=== PATIENT | female | born 1980 | race African-American/Black ===

== ENCOUNTER 2017-07-17 00:18 | Inpatient (IN) | payer OTHER ==
[2017-07-17] MEDS: morphine 4 MG/ML VIAL IV (01:09)
[2017-07-17] MEDS: ONDANSETRON 4 MG INJ IV (01:09)
[2017-07-17] MEDS: SODIUM CHLORIDE 0.9% 1L BAG IV* (01:10)
[2017-07-17 01:13] LABS: URINE BLOOD (Dip) POC 3+ (NEGATIVE); URINE GLUCOSE (Dip) POC Negative (NEGATIVE); URINE KETONES (Dip) POC 1+ (NEGATIVE); URINE LEUKOCYTE EST (Dip) POC Negative (NEGATIVE); URINE NITRITE (Dip) POC Negative (NEGATIVE); URINE TOTAL PROTEIN POC 3+ (NEGATIVE)
[2017-07-17 01:13] LABS: URINE PH (Dip) POC 5.5 (5.0-8.5)
[2017-07-17 01:19] LABS: ADD MAN DIFF? NO
[2017-07-17 01:20] LABS: WHITE BLOOD COUNT 7.3 10^3/ul (4.8-10.8)
[2017-07-17 01:20] LABS: BASOPHILS % 0.3 % (0.0-2.0); EOSINOPHILS # 0.2 10^3/ul (0.0-0.5); EOSINOPHILS % 2.6 % (0.0-7.0); HEMATOCRIT 45.9 % (37.0-47.0); HEMOGLOBIN 15.6 g/dl (12.0-16.0); LYMPHOCYTES # 1.9 10^3/ul (0.8-2.9); LYMPHOCYTES % 26.4 % (15.0-51.0); MEAN CORPUSCULAR HEMOGLOBIN 29.5 pg (29.0-33.0); MEAN CORPUSCULAR VOLUME 86.9 fl (82.0-101.0); MEAN PLATELET VOLUME 11.7 fl (7.4-10.4); MONOCYTE # 0.3 10^3/ul (0.3-0.9); MONOCYTES % 3.4 % (0.0-11.0); NEUTROPHIL # 4.9 10^3/ul (1.6-7.5); PLATELET COUNT 207 10^3/UL (140-415); RED BLOOD COUNT 5.28 10^6/ul (4.20-5.40); RED CELL DISTRIBUTION WIDTH 12.8 % (11.5-14.5)
[2017-07-17 01:36] LABS: INR 1.02; PROTIME 13.5 Sec (11.9-14.9); PT RATIO 1.1
[2017-07-17 01:37] LABS: PARTIAL THROMBOPLASTIN TIME 25.1 Sec (25.0-35.0)
[2017-07-17 01:42] LABS: ADD UMIC YES; UR ASCORBIC ACID 40 mg/dL (NEGATIVE); UR BACTERIA FEW /HPF (NONE SEEN); UR BILIRUBIN (Dip) NEGATIVE (NEGATIVE); UR BLOOD (Dip) 3+ mg/dL (NEGATIVE); UR CLARITY CLOUDY (CLEAR); UR COLOR RED (YELLOW); UR GLUCOSE (Dip) 1+ mg/dL (NEGATIVE); UR KETONES (Dip) TRACE mg/dL (NEGATIVE); UR LEUKOCYTE ESTERASE (Dip) TRACE Leu/ul (NEGATIVE); UR MUCUS MANY /HPF (NONE SEEN); UR NITRITE (Dip) NEGATIVE (NEGATIVE); UR RBC > 182 /HPF (0-5); UR SPECIFIC GRAVITY (Dip) 1.029 (1.003-1.030); UR SQUAMOUS EPITHELIAL CELL FEW /HPF (FEW); UR TOTAL PROTEIN (Dip) 3+ mg/dl (NEGATIVE); UR UROBILINOGEN (Dip) 1+ mg/dL (NEGATIVE); UR WBC 16 /HPF (0-5)
[2017-07-17 01:43] LABS: ETHANOL < 10.0 mg/dl
[2017-07-17 01:45] LABS: AMPHETAMINE/METHAMPHETAMINE Positive (NEGATIVE); CANNABINOIDS Positive (NEGATIVE); COCAINE Positive (NEGATIVE)
[2017-07-17 01:45] LABS: LACTIC ACID 4.4 mmol/L (0.5-2.0)
[2017-07-17 01:46] LABS: BARBITURATES Negative (NEGATIVE); BENZODIAZEPINES Negative (NEGATIVE); OPIATES Negative (NEGATIVE)
[2017-07-17 02:20] LABS: ALANINE AMINOTRANSFERASE 29 IU/L (13-69); ALBUMIN 4.9 g/dl (3.3-4.9); ALBUMIN/GLOBULIN RATIO 1.19; ALKALINE PHOSPHATASE 99 IU/L (42-121); ANION GAP 22 (8-16); ASPARTATE AMINO TRANSFERASE 31 IU/L (15-46); BILIRUBIN,INDIRECT 0.6 mg/dl (0-1.1); BILIRUBIN,TOTAL 0.6 mg/dl (0.2-1.3); BLOOD UREA NITROGEN 12 mg/dl (7-20); CALCIUM 10.7 mg/dl (8.4-10.2); CARBON DIOXIDE 24 mmol/L (21-31); CHLORIDE 103 mmol/L (97-110); CREATININE 0.95 mg/dl (0.44-1.00); GLUCOSE 171 mg/dl (70-220); LIPASE 111 U/L (23-300); POTASSIUM 3.6 mmol/L (3.5-5.1); SODIUM 145 mmol/L (135-144)
[2017-07-17] MEDS: PIPER-TAZO 3.375 GM IV (PMX) 100 ML IVPB (03:05)
[2017-07-17] MEDS: VANCOMYCIN 1 GM (PMX) 250 ML IVPB (03:27)
[2017-07-17] MEDS ORDERED: ONDANSETRON 4 MG INJ IV (03:30)
[2017-07-17] MEDS ORDERED: METOCLOPRAMIDE 10 MG INJ IV (03:30)
[2017-07-17] MEDS ORDERED: NACL 0.9% 3 ML SYG IV (03:30)
[2017-07-17] MEDS ORDERED: DOCUSATE SODIUM 100 MG CAP PO (03:30)
[2017-07-17] MEDS ORDERED: BISACODYL (EC) 5 MG TAB PO (03:30)
[2017-07-17] MEDS ORDERED: LORAZEPAM 2 MG INJ IV (03:30)
[2017-07-17] MEDS: KETOROLAC 30 MG INJ IV (04:40)
[2017-07-17] MEDS: METOCLOPRAMIDE 10 MG INJ IV ×3 (04:40→18:00)
[2017-07-17] MEDS: morphine 2 MG INJ IV (04:41)
[2017-07-17 05:00] LABS: LACTIC ACID 1.6 mmol/L (0.5-2.0)
[2017-07-17 05:59] LABS: ADD MAN DIFF? NO
[2017-07-17 06:07] LABS: BASOPHILS % 0.1 % (0.0-2.0); EOSINOPHILS # 0.1 10^3/ul (0.0-0.5); EOSINOPHILS % 1.1 % (0.0-7.0); HEMATOCRIT 37.8 % (37.0-47.0); HEMOGLOBIN 12.7 g/dl (12.0-16.0); LYMPHOCYTES # 0.6 10^3/ul (0.8-2.9); LYMPHOCYTES % 7.2 % (15.0-51.0); MEAN CORPUSCULAR HEMOGLOBIN 29.7 pg (29.0-33.0); MEAN CORPUSCULAR HGB CONC 33.6 g/dl (32.0-37.0); MEAN CORPUSCULAR VOLUME 88.5 fl (82.0-101.0); MEAN PLATELET VOLUME 11.7 fl (7.4-10.4); MONOCYTE # 0.3 10^3/ul (0.3-0.9); MONOCYTES % 2.9 % (0.0-11.0); NEUTROPHIL # 7.6 10^3/ul (1.6-7.5); NEUTROPHILS % 88.5 % (39.0-77.0); PLATELET COUNT 165 10^3/UL (140-415); RED BLOOD COUNT 4.27 10^6/ul (4.20-5.40); RED CELL DISTRIBUTION WIDTH 12.8 % (11.5-14.5)
[2017-07-17 06:07] LABS: WHITE BLOOD COUNT 8.6 10^3/ul (4.8-10.8)
[2017-07-17 06:32] LABS: ALANINE AMINOTRANSFERASE 22 IU/L (13-69); ALBUMIN 3.2 g/dl (3.3-4.9); ALBUMIN/GLOBULIN RATIO 1.03; ALKALINE PHOSPHATASE 59 IU/L (42-121); ANION GAP 10 (8-16); ASPARTATE AMINO TRANSFERASE 24 IU/L (15-46); BLOOD UREA NITROGEN 10 mg/dl (7-20); CALCIUM 8.1 mg/dl (8.4-10.2); CARBON DIOXIDE 23 mmol/L (21-31); CHLORIDE 115 mmol/L (97-110); CHOL/HDL RATIO 2.1 RATIO; CHOLESTEROL 98 mg/dl (100-200); CREATININE 0.72 mg/dl (0.44-1.00); GLUCOSE 128 mg/dl (70-220); HDL CHOLESTEROL 45 mg/dl (34-82); LDL CHOLESTEROL,CALCULATED 46 mg/dl; POTASSIUM 3.8 mmol/L (3.5-5.1); SODIUM 144 mmol/L (135-144); TOTAL PROTEIN 6.3 g/dl (6.1-8.1); TRIGLYCERIDES 34 mg/dl (0-149)
[2017-07-17 06:46] LABS: LACTIC ACID 1.4 mmol/L (0.5-2.0)
[2017-07-17] MEDS: SOD CHLORIDE 0.9% 1,000 ML IV ×3 (07:17→23:07)
[2017-07-17 07:45] LABS: HEMOGLOBIN A1C 5.4 % (0-5.9)
[2017-07-17 08:03] LABS: THYROID STIMULATING HORMONE 0.851 MIU/L (0.465-4.680)
[2017-07-17 08:38] LABS: LACTIC ACID 1.4 mmol/L (0.5-2.0)
[2017-07-17 14:51] LABS: LACTIC ACID 1.2 mmol/L (0.5-2.0)
[2017-07-17] MEDS: HYDROCODONE/APAP (5/325) TAB PO (15:46)
[2017-07-17] MEDS: metroNIDAZOLE 500 MG/NS (PMX) 100 ML IVPB ×2 (16:15→22:55)
[2017-07-17] MEDS: NICOTINE (14 MG/24 HR) PATCH TRANSDERM (16:15)
[2017-07-17] MEDS: ACETAMINOPHEN 325 MG TAB PO (19:17)
[2017-07-17] MEDS: CIPROFLOXACIN 400MG/D5W 200 ML IVPB (21:40)
[2017-07-17] MEDS: FAMOTIDINE 20 MG TAB PO (21:40)
[2017-07-18] MEDS: SOD CHLORIDE 0.9% 1,000 ML IV ×2 (00:14→18:59)
[2017-07-18] MEDS: METOCLOPRAMIDE 10 MG INJ IV ×5 (00:14→23:26)
[2017-07-18] MEDS: HYDROCODONE/APAP (5/325) TAB PO (03:21)
[2017-07-18] MEDS: metroNIDAZOLE 500 MG/NS (PMX) 100 ML IVPB ×3 (05:56→22:36)
[2017-07-18 06:15] LABS: ADD MAN DIFF? NO
[2017-07-18 06:25] LABS: BASOPHILS % 0.2 % (0.0-2.0); EOSINOPHILS # 0.1 10^3/ul (0.0-0.5); EOSINOPHILS % 1.9 % (0.0-7.0); HEMOGLOBIN 11.5 g/dl (12.0-16.0); LYMPHOCYTES # 1.2 10^3/ul (0.8-2.9); LYMPHOCYTES % 25.2 % (15.0-51.0); MEAN CORPUSCULAR HEMOGLOBIN 30.3 pg (29.0-33.0); MEAN CORPUSCULAR HGB CONC 33.8 g/dl (32.0-37.0); MEAN CORPUSCULAR VOLUME 89.7 fl (82.0-101.0); MEAN PLATELET VOLUME 11.7 fl (7.4-10.4); MONOCYTE # 0.3 10^3/ul (0.3-0.9); MONOCYTES % 6.8 % (0.0-11.0); NEUTROPHIL # 3.1 10^3/ul (1.6-7.5); NEUTROPHILS % 65.7 % (39.0-77.0); PLATELET COUNT 144 10^3/UL (140-415); RED BLOOD COUNT 3.79 10^6/ul (4.20-5.40); RED CELL DISTRIBUTION WIDTH 12.7 % (11.5-14.5)
[2017-07-18 06:25] LABS: WHITE BLOOD COUNT 4.7 10^3/ul (4.8-10.8)
[2017-07-18 06:44] LABS: ALANINE AMINOTRANSFERASE 27 IU/L (13-69); ALBUMIN 2.9 g/dl (3.3-4.9); ALBUMIN/GLOBULIN RATIO 1.03; ALKALINE PHOSPHATASE 51 IU/L (42-121); ANION GAP 11 (8-16); ASPARTATE AMINO TRANSFERASE 21 IU/L (15-46); BILIRUBIN,INDIRECT 0.8 mg/dl (0-1.1); BILIRUBIN,TOTAL 0.8 mg/dl (0.2-1.3); BLOOD UREA NITROGEN 4 mg/dl (7-20); CARBON DIOXIDE 23 mmol/L (21-31); CHLORIDE 107 mmol/L (97-110); CREATININE 0.76 mg/dl (0.44-1.00); GLUCOSE 95 mg/dl (70-220); MAGNESIUM 1.4 mg/dl (1.7-2.5); SODIUM 138 mmol/L (135-144); TOTAL PROTEIN 5.7 g/dl (6.1-8.1)
[2017-07-18 06:50] LABS: POTASSIUM 2.7 mmol/L (3.5-5.1)
[2017-07-18] MEDS: POTASSIUM CHLORIDE (SR) 20 MEQ TAB PO ×3 (07:47→15:46)
[2017-07-18] MEDS: MAGNESIUM SULFATE 2 GM/50 ML 50 ML IVPB (07:52)
[2017-07-18] MEDS: NICOTINE (14 MG/24 HR) PATCH TRANSDERM (08:01)
[2017-07-18] MEDS: FAMOTIDINE 20 MG TAB PO ×2 (08:01→20:42)
[2017-07-18] MEDS: CIPROFLOXACIN 400MG/D5W 200 ML IVPB ×2 (09:22→20:42)
[2017-07-18] MEDS: ACETAMINOPHEN 325 MG TAB PO (15:51)
[2017-07-19] MEDS: METOCLOPRAMIDE 10 MG INJ IV (05:39)
[2017-07-19] MEDS: metroNIDAZOLE 500 MG/NS (PMX) 100 ML IVPB (05:39)
[2017-07-19] MEDS: SOD CHLORIDE 0.9% 1,000 ML IV (05:39)
[2017-07-19 06:39] LABS: ANION GAP 9 (8-16); CARBON DIOXIDE 27 mmol/L (21-31); CHLORIDE 112 mmol/L (97-110); GLUCOSE 94 mg/dl (70-220); POTASSIUM 3.8 mmol/L (3.5-5.1); SODIUM 144 mmol/L (135-144)
[2017-07-19 06:50] LABS: BLOOD UREA NITROGEN < 2 mg/dl (7-20)
[2017-07-19] MEDS: CIPROFLOXACIN 400MG/D5W 200 ML IVPB (08:52)
[2017-07-19] MEDS: FAMOTIDINE 20 MG TAB PO (08:52)
[2017-07-19] MEDS: NICOTINE (14 MG/24 HR) PATCH TRANSDERM (08:54)
== END 2017-07-19 13:20 | disposition home or self-care (01) | DRG 641 ==
LOC: MS2 07-18 08:50 → E/R 00:18 → MS3 03:05
DX: E86.0 Dehydration (principal); K52.9 Noninfective gastroenteritis and colitis, unspecified; E87.2 Acidosis; F14.10 Cocaine abuse, uncomplicated; F12.10 Cannabis abuse, uncomplicated; F15.10 Other stimulant abuse, uncomplicated; F17.210 Nicotine dependence, cigarettes, uncomplicated; R10.13 Epigastric pain
CPT/HCPCS: 36415; 71045; 74176; 80048; 80053; 80061; 80306; 80307; 81001; 81003; 83036; 83605; 83690; 83735; 84443; 84703; 85025; 85610; 85730; 87040; 87045; 87075; 87086; 87177; 93005; 96374; 96375; 96376; 99291-25